=== PATIENT | female | born 1975 | race Two or more races ===

== ENCOUNTER → 2024-12-18 | Outpatient (CLI) | payer MEDICAID, SELFPAY ==
--- NOTE | 2024-12-18 11:45 | XR_ITS ---
Examination: Breast ultrasound, unilateral, left complete Date and time of exam: December 18, 2024, 1206 hours INDICATIONS: Mammogram November 08, 2023 12 mm nodule upper outer right breast 8mm nodule upper outer left breast Technique: Real-time michel scale ultrasonographic imaging performed left breast including all 4 quadrants as well as nipple retroareolar and axillary region. Findings: 1:00 cyst 4 x 4 millimeter 3:00 cyst 3 x 3 mm No solid nodules IMPRESSION: BI-RADS Category 2: Benign findings
== END | disposition home or self-care (01) ==
LOC: CDIM 11:54
PROVIDERS: PCP Family Medicine; Referring Provider Family Medicine; Visit Provider Family Medicine
DX: N60.12 Diffuse cystic mastopathy of left breast (principal)
CPT/HCPCS: 76641